=== PATIENT | female | born 1975 | race Hispanic/Latino ===

== ENCOUNTER 2024-06-12 05:14 | Inpatient (IN) | payer SELFPAY ==
[2024-06-12] MEDS ORDERED: ONDANSETRON 4 MG/2 ML VIAL ONE ×2 (06:03→16:39)
[2024-06-12] MEDS ORDERED: NA CHLORIDE 0.9% 1,000 ML ONE (06:04)
[2024-06-12] MEDS ORDERED: MORPHINE 4 MG/ML SYR ONE (06:04)
[2024-06-12 06:13] LABS: Absolute Eosinophils 0.1 K/uL (0-0.5); Absolute Lymphocytes (CBC) 1.7 K/uL (0.7-4.9); Absolute Monocytes 0.7 K/uL (0.1-1.3); Absolute Neutrophil 8.8 K/uL (1.8-8.0); Basophils % 0.4 % (0-1.3); Eosinophils % 0.8 % (0-4.4); Hemoglobin 13.5 g/dL (12.0-15.0); MCH 29.9 pg (27.0-35.0); MCHC 33.6 g/dL (32.0-36.0); MCV 88.9 fL (80-100); MPV 8.8 fL (7.6-11.3); Monocytes % 6.6 % (3.3-12.3); Neutrophils % 77.2 % (41.7-73.7); Platelets 283 thou/uL (152-406); Red Cell Distribution Width 13.6 % (12.1-15.2)
[2024-06-12 06:37] LABS: ALT/SGPT 35 U/L (13-56); AST/SGOT 20 U/L (15-37); Albumin 3.5 g/dL (3.4-5.0); Albumin/Globulin Ratio 0.7 (1.1-1.8); Alkaline Phosphatase 119 U/L (45-117); Anion Gap 8.8 mEq/L (5.0-15.0); BUN Blood Urea Nitrogen 11 mg/dL (7-18); Bicarbonate 26 mEq/L (21-32); Bilirubin Total 0.3 mg/dL (0.2-1.0); Globulin 4.7 g/dL (2.3-3.5); Glomerular Filtration Rate 108 ml/min (=/>90); Glucose Level 146 mg/dL (74-106); Lipase 36 U/L (13-75); Potassium 3.8 mEq/L (3.5-5.1); Protein, Total 8.2 g/dL (6.4-8.2); Sodium Level 135 mEq/L (136-145); Troponin High Sensitivity < 3.0 pg/mL (<58.9)
[2024-06-12 07:07] LABS: Specific Gravity 1.015 (1.005-1.030)
[2024-06-12 07:11] LABS: Specific Gravity 1.015 (1.005-1.030); Sqamous Epithelial <5 /HPF (None Seen); Urine Bacteria None Seen /HPF (<20); Urine Bilirubin NEGATIVE (Negative); Urine Blood Trace (Negative); Urine Clarity Clear (Clear); Urine Color Colorless (Yellow); Urine Culture Reflex Order NOT NEEDED; Urine Glucose NEGATIVE (Negative); Urine Ketones NEGATIVE (Negative); Urine Microscopic Reflex YN ORDER UMIC; Urine Nitrite NEGATIVE (Negative); Urine Protein NEGATIVE (Negative); Urine RBC <5 /HPF (None Seen); Urine Urobilinogen Normal (Normal); Urine WBC None Seen /HPF (<5)
--- NOTE | 2024-06-12 07:56 | RAD REPORT ---
EXAMINATION: CT ABDOMEN AND PELVIS WITH CONTRAST CLINICAL INDICATION: Abdominal pain TECHNIQUE: CT abdomen and pelvis was performed, after the administration of 100 cc Isovue-300.. Sagit mikaela and coronal reconstructions were obtained. One or more of the following dose reduction techniques were used: Automated exposure control, adjustment of the mA and kV according to patient si ze, and iterative reconstruction. Unless otherwise specified, incidental findings do not require dedicated imaging follow-up. [id number]. Oral contrast was not given which limits evaluation of bowel and appendix. COMPARISON: .None FINDINGS: 2.8 cm stone within the gallbladder neck.. Mild lower lobe opacity. Liver, spleen, pancreas, adrenals and kidneys appear unremarkable No evidence of diverticulitis. Normal appendix. Small umbilical hernia. No adnexal mass : IMPRESSION: Cholelithiasis Mild left lower lobe opacity probably pneumonia
--- NOTE | 2024-06-12 08:07 | ER ---
Nurse's Notes [facility] Name: Mone Voss Age: 48 yrs Sex: Female : 1975 Arrival Date: 06/12/2024 Time: 05:14 Bed 20 Private MD: Diagnosis: Acute cholecystitis;Other cholelithiasis with obstruction;Pneumonia due to other specified bacteria;Epigastric abdominal tenderness;Obesity, unspecified Presentation: 06/12 05:44 Chief complaint: Patient states: C/O UPPER AB PAIN THAT RADIATES TO MID BACK WITH br2 NAUSEA. Coronavirus screen: Client denies travel out of the [place] in the last 14 days. Ebola Screen: Patient denies exposure to infectious person. Patient denies travel to an Ebola-affected area in the 21 days before illness onset. Initial Sepsis Screen: Does the patient meet any 2 criteria? No. Patient's initial sepsis screen is negative. Does the patient have a suspected source of infection? No. Patient's initial sepsis screen is negative. Risk Assessment: Do you want to hurt yourself or someone else? Patient reports no desire to harm self or others. Onset of symptoms was June 12, 2024 at 02:30. 05:44 Method Of Arrival: Ambulatory br2 05:44 Acuity: KAYE 3 br2 Triage Assessment: 05:46 General: Appears in no apparent distress. comfortable, Behavior is calm, cooperative. br2 Pain: Complains of pain in right upper quadrant and left upper quadrant Pain radiates to left mid back and right mid back. Cardiovascular: Capillary refill < 3 seconds. Respiratory: Airway is patent Respiratory effort is even, unlabored, Respiratory pattern is regular, symmetrical. GI: Abdomen is obese, Abd is soft Reports upper abdominal pain, nausea. Historical: - Allergies: 05:46 No Known Allergies; br2 - PMHx: 05:46 Diabetes mellitus; Arthritis; br2 - PSHx: 06:56 Ligation of fallopian tube; br2 - Immunization history:: Adult Immunizations up to date. - Infectious Disease History:: Denies. - Social history:: Smoking status: Patient denies any tobacco usage or history of. Patient/guardian denies using alcohol, street drugs. - Family history:: not pertinent. Screenin:48 [facility] ED Fall Risk Assessment (Adult) History of falling in the last 3 months, br2 including since admission No falls in past 3 months (0 pts) Confusion or Disorientation No (0 pts) Intoxicated or Sedated No (0 pts) Impaired Gait No (0 pts) Mobility Assist Device Used No (0 pt) Altered Elimination No (0 pt) Score/Fall Risk Level 0 - 2 = Low Risk Oriented to surroundings. Abuse screen: Denies threats or abuse. Denies injuries from another. Nutritional screening: No deficits noted. Tuberculosis screening: No symptoms or risk factors identified. Assessment: 05:44 Reassessment: SEE TRIAGE ASSESSMENT. br2 06:40 Reassessment: Patient and/or family updated on plan of care and expected duration. Pain br2 level reassessed. Patient is alert, oriented x 3, equal unlabored respirations, skin warm/dry/pink. Patient states feeling better. Patient states symptoms have improved. 07:29 Reassessment: Patient appears in no apparent distress at this time. No changes from kc6 previously documented assessment. Patient and/or family updated on plan of care and expected duration. Pain level reassessed. Patient is alert, oriented x 3, equal unlabored respirations, skin warm/dry/pink. 08:29 Reassessment: Patient appears in no apparent distress at this time. No changes from kc6 previously documented assessment. Patient and/or family updated on plan of care and expected duration. Pain level reassessed. Patient is alert, oriented x 3, equal unlabored respirations, skin warm/dry/pink. Patient states symptoms have not improved. 09:29 Reassessment: Patient appears in no apparent distress at this time. No changes from kc6 previously documented assessment. Patient and/or family updated on plan of care and expected duration. Pain level reassessed. Patient is alert, oriented x 3, equal unlabored respirations, skin warm/dry/pink. Patient states feeling better. Patient states symptoms have improved. Vital Signs: 05:44 BP 131 / 84; Pulse 86; Resp 18; Temp 98.3(TE); Pulse Ox 100% on R/A; Weight 102.97 kg; br2 Height 5 ft. 2 in. ; Pain 10/10; 06:38 BP 129 / 84; Pulse 85; Resp 18; Pulse Ox 97% ; Pain 6/10; br2 09:07 BP 124 / 77; Pulse 90; Resp 18 S; Temp 98.1(O); Pulse Ox 99% on R/A; Pain 10/10; kc6 05:44 Body Mass Index 41.52 (102.97 kg, 157.48 cm) br2 05:44 Pain Scale: Adult br2 06:38 Pain Scale: Adult br2 09:07 Pain Scale: Adult kc6 ED Course: 05:27 Patient arrived in ED. gm2 05:27 Tulio Cruz MD is Attending Physician. rt 05:34 Nikki Briones RN is Primary Nurse. br2 05:41 Inserted saline lock: 20 gauge in right antecubital area, using aseptic technique. af3 Blood collected. Flushed with 10 mL NS. 05:42 Inserted. af3 05:46 Triage completed. br2 05:46 Arm band placed on. br2 05:48 Patient has correct armband on for positive identification. Placed in gown. Bed in low br2 position. Call light in reach. Side rails up X 1. Provided Education on: PLAN OF CARE. 06:10 CBC with Diff Sent. br2 06:10 CMP Sent. br2 06:10 Lipase Sent. br2 06:39 Radiology exam delayed due to test not completed at this time. sm9 07:00 Report received from Nikki Briones RN. kc6 07:00 Pulse ox on. NIBP on. Door closed. Noise minimized. Lights dimmed. Warm blanket given. kc6 Pillow given. Verbal reassurance given. 07:15 Attending Physician role handed off by Tulio Cruz MD aishwarya 07:15 Ed Singletary MD is Attending Physician. aishwarya 07:40 CT Abd/Pelvis - IV Contrast Only In Process Unspecified. EDMS 08:04 US Abdomen Limited In Process Unspecified. EDMS 08:05 Yahir Crenshaw is Hospitalizing Provider. aishwarya 10:44 No provider procedures requiring assistance completed. Patient admitted, IV remains in kc6 place. Administered Medications: 06:09 Drug: Ondansetron IVP 4 mg IVP once; over 2 minutes Route: IVP; Site: right antecubital;br2 08:58 Follow up: Response: No adverse reaction; Nausea is decreased kc6 06:09 Drug: morphine IVP or IV 4 mg IVP once over 4 mins Route: IVP; Infused Over: 4 mins; br2 Site: right antecubital; 08:58 Follow up: Response: No adverse reaction; Pain is unchanged, physician notified; RASS: kc6 Alert and Calm (0) 06:09 Drug: NS 0.9% IV 1000 ml IV at 1 bolus Per protocol; to be given as a bolus over 60 br2 minutes Route: IV; Rate: 1 bolus; Site: right antecubital; 08:59 Follow up: Response: No adverse reaction; IV Status: Completed infusion; IV Intake: kc6 1000ml 09:06 Drug: Piperacillin-Tazobactam IVPB 3.375 grams IVPB once over 60 mins; (mix in NS 100 kc6 mL) Route: IVPB; Infused Over: 60 mins; Site: right antecubital; 10:16 Follow up: Response: No adverse reaction; IV Status: Completed infusion; IV Intake: kc6 100ml 09:06 Drug: NS 0.9% IV 500 ml 500 ml IV at 1 bolus once; to be given as a bolus over 30 kc6 minutes Volume: 500 ml; Route: IV; Rate: 1 bolus; Site: right antecubital; 10:16 Follow up: Response: No adverse reaction; IV Status: Completed infusion; IV Intake: kc6 500ml 09:06 Drug: HYDROmorphone IVP 1 mg IVP once Route: IVP; Site: right antecubital; kc6 10:16 Follow up: Response: No adverse reaction; Pain is decreased; RASS: Alert and Calm (0) kc6 Medication: 10:44 VIS not applicable for this client. kc6 Intake: 08:59 IV: 1000ml; Total: 1000ml. kc6 10:16 IV: 100ml; Total: 1100ml. kc6 10:16 IV: 500ml; Total: 1600ml. kc6 Outcome: 08:07 Decision to Hospitalize by Provider. aishwarya 10:44 Admitted to Med/surg accompanied by tech, family with patient, via wheelchair, room kc6 223, with chart, 10:44 Condition: good 10:44 Instructed on the need for admit, 10:44 Patient left the ED. kc6 Signatures: Dispatcher [employer] EDMS Ed Singletary MD MD cha Campbell, Kaitlyn, RN RN kc6 Tulio Cruz MD MD rt Mary Ann Barfield 2 Sarah Ceja 9 Nikki Briones RN RN br2 Esthela Xiao af3
--- NOTE | 2024-06-12 08:07 | EDPHYS ---
Physician Documentation [facility] Name: Mone Voss Age: 48 yrs Sex: Female : 1975 Arrival Date: 06/12/2024 Time: 05:14 Bed 20 Private MD: ED Physician Ed Singletary HPI: 06/12 06:24 This 48 yrs old Female presents to ER via Ambulatory with complaints of rt Abdominal Pain, Nausea. 06:24 Patient presents to the ED with epigastric pain radiating to the back starting at about rt 11 PM. States that is been constant since then. Reports nausea without vomiting. Denies other acute complaints at this time, symptoms are moderate in severity, no other aggravating alleviating factors.. Historical: - Allergies: 05:46 No Known Allergies; br2 - PMHx: 05:46 Diabetes mellitus; Arthritis; br2 - PSHx: 06:56 Ligation of fallopian tube; br2 - Immunization history:: Adult Immunizations up to date. - Infectious Disease History:: Denies. - Social history:: Smoking status: Patient denies any tobacco usage or history of. Patient/guardian denies using alcohol, street drugs. - Family history:: not pertinent. ROS: 06:24 Constitutional: Negative for fever, chills, and weight loss, Cardiovascular: Negative rt for chest pain, palpitations, and edema, Respiratory: Negative for shortness of breath, cough, wheezing, and pleuritic chest pain, MS/Extremity: Negative for injury and deformity, Skin: Negative for injury, rash, and discoloration, Neuro: Negative for headache, weakness, numbness, tingling, and seizure, 06:24 Abdomen/GI: Positive for abdominal pain, nausea, Exam: 06:24 ECG was reviewed by the Attending Physician. rt 06:24 Abdomen/GI: Tenderness to the epigastrium with mild guarding, no rebound, no distention, Fields sign negative, no focal right upper quadrant, right lower quadrant tenderness, Vital Signs: 05:44 BP 131 / 84; Pulse 86; Resp 18; Temp 98.3(TE); Pulse Ox 100% on R/A; Weight 102.97 kg; br2 Height 5 ft. 2 in. ; Pain 10/10; 06:38 BP 129 / 84; Pulse 85; Resp 18; Pulse Ox 97% ; Pain 6/10; br2 09:07 BP 124 / 77; Pulse 90; Resp 18 S; Temp 98.1(O); Pulse Ox 99% on R/A; Pain 10/10; kc6 05:44 Body Mass Index 41.52 (102.97 kg, 157.48 cm) br2 05:44 Pain Scale: Adult br2 06:38 Pain Scale: Adult br2 09:07 Pain Scale: Adult kc6 MDM: 05:50 Medical Screening Exam initiated rt 07:50 Differential diagnosis: Nonspecific abd pain, gastritis, cholecystitis, pancreatitis, aishwarya appendicitis, diverticulitis, viral gastroenteritis, gastroenteritis. Data reviewed: vital signs, nurses notes, lab test result(s), EKG, radiologic studies. Consideration of Admission/Observation Escalation of care including admission/observation considered. I considered the following discharge prescriptions or medication management in the emergency department Medications were administered in the Emergency Department. See MAR. Independent interpretation of the following test(s) in the Emergency Department EKG: See my EKG interpretation above. Test considered but Not performed: MRI: no mrcp. Historians other than the Patient: pt well informed. Care significantly affected by the following chronic conditions: Diabetes, Obesity. 06/12 05:57 Order name: CBC with Diff; Complete Time: 07:18 rt 06/12 05:57 Order name: CMP; Complete Time: 07:18 rt 06/12 05:57 Order name: Lipase; Complete Time: 07:18 rt 06/12 05:57 Order name: Test, Urine; Complete Time: 07:18 rt 06/12 05:57 Order name: Urinalysis w/ reflexes; Complete Time: 07:18 rt 06/12 05:57 Order name: Troponin High Sensitivity; Complete Time: 07:18 rt 06/12 08:00 Order name: Blood Culture Adult (2) aishwarya 06/12 08:00 Order name: Lactate w/ 2H reflex if indic. aishwarya 06/12 09:41 Order name: Urinalysis w/ reflexes EDMS 06/12 09:41 Order name: CBC with Automated Diff EDMS 06/12 09:41 Order name: CBC with Automated Diff EDMS 06/12 09:41 Order name: Comprehensive Metabolic Panel EDMS 06/12 09:41 Order name: Comprehensive Metabolic Panel EDMS 06/12 09:41 Order name: Magnesium EDMS 06/12 09:41 Order name: Magnesium EDMS 06/12 09:41 Order name: Phosphorus EDMS 06/12 09:41 Order name: Phosphorus EDMS 06/12 05:57 Order name: CT Abd/Pelvis - IV Contrast Only; Complete Time: 07:59 rt 06/12 07:18 Order name: US Abdomen Limited; Complete Time: 08:57 aishwarya 06/12 09:41 Order name: CONS Physician Consult EDMS 06/12 05:57 Order name: IV Saline Lock; Complete Time: 05:58 rt 06/12 05:57 Order name: Labs collected and sent; Complete Time: 06:10 rt 06/12 05:57 Order name: EKG - Nurse/Tech; Complete Time: 06:20 rt EC:24 Rate is 84 beats/min. Rhythm is regular, 1st Degree Block with No ectopy. QRS [place] is rt Normal. AL interval is normal. QRS interval is normal. QT interval is normal. No Q waves. T waves are Normal. No ST changes noted. Interpreted by me. Administered Medications: 06:09 Drug: Ondansetron IVP 4 mg IVP once; over 2 minutes Route: IVP; Site: right antecubital;br2 08:58 Follow up: Response: No adverse reaction; Nausea is decreased kc6 06:09 Drug: morphine IVP or IV 4 mg IVP once over 4 mins Route: IVP; Infused Over: 4 mins; br2 Site: right antecubital; 08:58 Follow up: Response: No adverse reaction; Pain is unchanged, physician notified; RASS: kc6 Alert and Calm (0) 06:09 Drug: NS 0.9% IV 1000 ml IV at 1 bolus Per protocol; to be given as a bolus over 60 br2 minutes Route: IV; Rate: 1 bolus; Site: right antecubital; 08:59 Follow up: Response: No adverse reaction; IV Status: Completed infusion; IV Intake: kc6 1000ml 09:06 Drug: Piperacillin-Tazobactam IVPB 3.375 grams IVPB once over 60 mins; (mix in NS 100 kc6 mL) Route: IVPB; Infused Over: 60 mins; Site: right antecubital; 10:16 Follow up: Response: No adverse reaction; IV Status: Completed infusion; IV Intake: kc6 100ml 09:06 Drug: NS 0.9% IV 500 ml 500 ml IV at 1 bolus once; to be given as a bolus over 30 kc6 minutes Volume: 500 ml; Route: IV; Rate: 1 bolus; Site: right antecubital; 10:16 Follow up: Response: No adverse reaction; IV Status: Completed infusion; IV Intake: kc6 500ml 09:06 Drug: HYDROmorphone IVP 1 mg IVP once Route: IVP; Site: right antecubital; kc6 10:16 Follow up: Response: No adverse reaction; Pain is decreased; RASS: Alert and Calm (0) kc6 Disposition Summary: 06/12/24 08:07 Hospitalization Ordered Notes: Hospitalization Status: Inpatient Admission aishwarya Provider: Yahir Crenshaw cha Location: Telemetry/MedSurg (Inpatient) aishwarya Condition: Stable aishwarya Problem: new aishwarya Symptoms: have improved aishwarya Bed/Room Type: Standard [facility] Room Assignment: 223(06/12/24 09:57) bc6 Diagnosis - Acute cholecystitis aishwarya - Other cholelithiasis with obstruction aishwarya - Pneumonia due to other specified bacteria aishwarya - Epigastric abdominal tenderness aishwarya - Obesity, unspecified aishwarya Forms: - Medication Reconciliation Form aishwarya - SBAR form aishwarya - Leadership Thank You Letter aishwarya Signatures: Dispatcher [employer] EDEd Gibson MD MD cha Campbell, Kaitlyn RN RN kc6 Tulio Cruz MD MD rt [place], Breana bc6 Nikki Briones, RN RN br2 Corrections: (The following items were deleted from the chart) 05:57 05:57 Abdomen Pelvis W Con+CT.RAD.BRZ ordered. EDMS EDMS 07:19 07:18 Abdomen Limited+US.RAD.BRZ ordered. EDMS EDMS 08:00 08:00 BLOOD CULTURE*+BA.LAB.BRZ ordered. EDMS EDMS 08:00 08:00 LACTATE+C.LAB.BRZ ordered. EDMS EDMS 09:57 08:07 aishwarya bc6
--- NOTE | 2024-06-12 08:24 | RAD REPORT ---
EXAM: Right upper quadrant ultrasound. CLINICAL HISTORY: Abdominal pain COMPARISON: CT June 12, 2024 FINDINGS: 2.5 cm stone within the gallbladder neck. Gallbladder wall upper limits normal thickness. Biliary tree normal caliber IMPRESSION: Stone within the neck the gallbladder. No evidence of cholecystitis
[2024-06-12] MEDS ORDERED: NA CHLORIDE 0.9% 500 ML ONE (08:41)
[2024-06-12] MEDS ORDERED: NA CHLORIDE 0.9% 100 ML ONE (08:41)
[2024-06-12] MEDS ORDERED: PIPERACIL/TAZO 3.375 GM VIAL IV ONE (08:41)
[2024-06-12] MEDS ORDERED: HYDROMORPHONE HCL 1 MG/ML INJ ONE (08:58)
[2024-06-12] MEDS: NA CHLORIDE 0.9% 1,000 ML IV SCH (10:00)
[2024-06-12] MEDS ORDERED: GLUCAGON 1 MG/VIAL IM PRN (11:00)
[2024-06-12] MEDS ORDERED: D50W 25 GM/50 ML SYRINGE IV PRN (11:00)
[2024-06-12 11:18] VITALS: BMI 41.5
[2024-06-12] MEDS: INSULIN REGULAR (HUMAN) 100 UNIT/ML SQ SCH (11:30)
--- NOTE | 2024-06-12 14:18 | P.HP ---
Date of Service: 06/12/24 PC: This 48-year-old female presented emergency room with severe right upper quadrant abdominal pain for diagnosis and treatment. HPC: This patient has been experiencing right upper quadrant abdominal pain for the last couple of months. Has increased both in intensity and in duration. Last night became so severe she came to the emergency room. PSHx: Negative PMHx: 5 para 5, diabetic Social Hx: No known allergies Sys R: No cough, wheeze, shortness of breath. No chest pain or palpitations. No urinary complaints O/E: Awake alert vital signs are stable, not in distress at the moment HEENT: Not jaundiced Chest: Air entry equal bilaterally Abd: Mild abdominal tenderness Rosebud: Intact Data: Has documented gallstones, wound down by the medic Impression: Cholecystitis with cholelithiasis, biliary colic Plan: I will taken the operating room for laparoscopic possible open cholecystectomy with a cholangiogram. The risks of this procedure have been discussed. The possibility of bleeding, infection, injury to the bile ducts blood vessels and intestines were outlined. She has her daughter here as coil winder repair. She understands and wants us to proceed.
[2024-06-12] MEDS: NA CHLORIDE 0.9% 1,000 ML ONE ×2 (14:20→17:56)
[2024-06-12] MEDS ORDERED: propofoL 200 MG/20 ML VIAL IV ONE (15:13)
[2024-06-12] MEDS ORDERED: MIDAZOLAM HCL 2 MG/2 ML INJ ONE (15:13)
[2024-06-12] MEDS ORDERED: ROCURONIUM 50 MG/5 ML VIAL IV ONE ×2 (15:13→16:57)
[2024-06-12] MEDS ORDERED: FENTANYL CITR 100 MCG/2 ML ONE ×2 (15:13→16:58)
[2024-06-12] MEDS ORDERED: LIDOCAINE 2% MPF 5 ML VIAL ONE (15:13)
--- NOTE | 2024-06-12 15:19 | P.HP ---
Certification for Inpatient Patient admitted to: Inpatient With expected LOS: >2 Midnights Practitioner: I am a practitioner with admitting privileges, knowledge of patient current condition, hospital course, and medical plan of care. Services: Services provided to patient in accordance with Admission requirements found in Title 42 Section 412.3 of the Code of Federal Regulations Patient History Date of Service: 06/12/24 Reason for admission: Acute cholecystitis History of Present Illness: Mone Voss is a 48-year-old female with past medical history of diabetesIDDM and hypothyroidism who presents to the ED with chief complaint of epigastric abdominal and back pain associated with nausea that started around 11PM. She denies episodes like this in the past. Laboratory evaluation significant for WBC 11.4, sodium 135, serum glucose 146, UA negative for infectious process. CT abdomen pelvis reports "Cholelithiasis, 2.8 cm stone within the gallbladder neck mild left lower lobe opacity probably pneumonia" Ultrasound abdomen reports "Stone within the neck the gallbladder. No evidence of cholecystitis" Mone will be admitted to hospitalist service for further treatment of acute cholecystitis, Dr. Keller consulted Allergies No Known Allergies Allergy (Unverified 06/12/24 09:58) Home Medications: Levothyroxine [Synthroid*] 06/12/24 Metformin HCl 500 mg PO BID 06/12/24 - Past Medical/Surgical History Has patient received pneumonia vaccine in the past: No Diabetic: Yes -: DIABETES -: HYPOTHYROIDISM -: TUBAL LIGATION - Social History Smoking Status: Never smoker Alcohol use: No CD- Drugs: No Caffeine use: No Place of Residence: Home Review of Systems Other: per HPI Physical Examination - Vital Signs Temperature: 97.7 F Blood Pressure: 124/65 Pulse: 80 Respirations: 20 Pulse Ox (%): 95 - Physical Exam General: Alert, In no apparent distress, Oriented x3 HEENT: Atraumatic, Normocephalic, PERRLA Neck: Supple, 2+ carotid pulse no bruit Respiratory: Clear to auscultation bilaterally, Normal air movement Cardiovascular: Normal pulses, Regular rate/rhythm, Normal S1 S2 Capillary refill: <2 Seconds Gastrointestinal: Normal bowel sounds, Soft and benign, Tenderness Musculoskeletal: No clubbing Integumentary: No rashes Neurological: Normal speech, Normal tone - Studies Laboratory Data (last 24 hrs) 06/12/24 06/12/24 06:00 06:00 WBC 11.40 H Hgb 13.5 Hct 40.0 Plt Count 283 Sodium 135 L Potassium 3.8 BUN 11 Creatinine 0.67 Glucose 146 H Total Bilirubin 0.3 AST 20 ALT 35 Alkaline Phosphatase 119 H Lipase 36 Assessment and Plan - Plan Assessment and plan Acute cholecystitis -IV Zosyn every 8 -IV fluids -Pain control -Antiemetics -N.p.o. for surgery today -Dr. Keller consulted -Follow LFTs in the a.m. Diabetes mellitus-NIDDM -Accu-Chek with sliding scale insulin History of arthritis History of hypothyroidism -Continue home medication when available DVT PPx SCDs Full code LOS 2 days Discharge Plan: Home Plan to discharge in: 48 Hours - Advance Directives Does patient have a Living Will: No Does patient have a Durable POA for Healthcare: No
[2024-06-12] MEDS: SUGAMMADEX SODIUM 200 MG/2 ML VIAL IV ONE (15:25)
[2024-06-12] MEDS: SUCCINYLCHOLINE 20 MG/ML (10 ML) IV ONE (15:26)
[2024-06-12] MEDS ORDERED: FLU (Fluarix Triv) TS24-25(6MOS UP)/PF 45 MCG/0.5 ML Syringe IM ONE (15:45)
[2024-06-12] MEDS ORDERED: dexAMETHasone 4 MG/ML VIAL ONE (16:39)
--- NOTE | 2024-06-12 17:30 | P.OP ---
Preoperative diagnosis: Acute on chronic cholecystitis with cholelithiasis Postoperative diagnosis: Same with hydrops of the gallbladder Primary procedure: Laparoscopic cholecystectomy Secondary procedure: Cholangiogram Anesthesia: General Estimated blood loss: Less than 10 cc Specimen: 1 gallbladder and content Operative Technique: Patient brought the operating room and placed supine on the table. After the induction of adequate general endotracheal anesthesia, the area of the abdomen was prepped with a DuraPrep solution, she was draped in the usual aseptic manner. A subumbilical incision was made. This is brought down through the skin and subcutaneous tissue. The Visiport was used to enter the peritoneal cavity and created pneumoperitoneum to approximately 12 mmHg. Under direct vision a 5 mm trocars placed in the upper midline, and 2 other fives on the right lateral side of the abdomen. We were now able to visualize the gallbladder. It was noted to be markedly distended. We were unable to place a grasper on it due to the distention. An aspirating needle was now inserted into the body of the gallbladder. We encountered thick white mucousy fluid from the gallbladder. He is having been deflated we can now easily get a grasper onto the fundus and another down by Martinez's pouch. Applying lateral traction we were able to dissect out and expose the cystic duct and artery. A clip was placed into the gallbladder and the cystic duct. An opening was made into the cystic duct. The cholangiocatheter was easily passed into the cystic duct and down into the common bile duct. The balloon was inflated. We obtained a cholangiogram that demonstrated good flow of contrast into the duodenum, no filling defects were noted. The catheter was now pulled back and we injected again with the occluding balloon deflating. We could see good flow of contrast into the duodenum as well as filling of the upper radicles, and also demonstrating where the cystic duct was. The catheter was now withdrawn. Clips were placed on the distal portion of the cystic duct. The cystic artery was clipped and divided as well. The gallbladder was now dissected free from the liver bed, placed into an Endo Catch, and brought out through the umbilical trocar site. Attention was turned towards the umbilicus. We approximated the fascia using the Endo Close and absorbable sutures. The abdomen was now inspected to her adequate hemostasis. The irrigating fluid was aspirated from the peritoneal cavity. The trocars were now removed, the pneumoperitoneum collapsed, and the sutures at the umbilicus were tied. At the end of procedure she was stable condition was sent to the recovery room. Needle sponge instrument count were correct. [place] have been applied to the s kin. No drains were placed. Complications: None Transferred to: Recovery Room Condition: Good
[2024-06-12 18:12] VITALS: O2SAT 100
[2024-06-12] MEDS: PIPER TAZO 3.375 GM in NA CHLORIDE 0.9% 100 ML IV SCH (18:14)
[2024-06-12] MEDS: MORPHINE 4 MG/ML SYR IV PRN (18:15)
--- NOTE | 2024-06-12 20:48 | RAD REPORT ---
Exam: Cholangiogram operating x-ray lumbar Clinical history cholecystectomy FINDINGS: 4 fluoroscopic spot images obtained. Fluoroscopy time 8 minutes. Cholangiogram performed. Surgeon Dr. Keller. Please refer to his notes for findings
[2024-06-13] MEDS: HYDROCODONE/APAP 7.5/325 MG TAB PO PRN (01:17)
[2024-06-13] MEDS: ONDANSETRON 4 MG/2 ML VIAL IV PRN (01:17)
[2024-06-13] MEDS: LEVOTHYROXINE SOD 0.075 MG TAB PO SCH (06:21)
[2024-06-13 07:25] LABS: Absolute Lymphocytes (CBC) 1.8 K/uL (0.7-4.9); Absolute Monocytes 0.7 K/uL (0.1-1.3); Absolute Neutrophil 6.4 K/uL (1.8-8.0); Basophils % 0.3 % (0-1.3); Hematocrit 36.4 % (36.0-45.0); Hemoglobin 12.1 g/dL (12.0-15.0); Lymphocytes % 19.9 % (15.3-44.8); MCH 29.8 pg (27.0-35.0); MCHC 33.3 g/dL (32.0-36.0); MCV 89.7 fL (80-100); MPV 8.3 fL (7.6-11.3); Monocytes % 7.4 % (3.3-12.3); Neutrophils % 72.4 % (41.7-73.7); Nucleated Red Blood Cells % 0.1 % (0-0); Platelets 283 thou/uL (152-406); RBC Red Blood Cell Count 4.06 M/uL (3.86-4.86); Red Cell Distribution Width 13.3 % (12.1-15.2)
[2024-06-13 07:48] LABS: Albumin 2.9 g/dL (3.4-5.0); Albumin/Globulin Ratio 0.7 (1.1-1.8); Anion Gap 9.7 mEq/L (5.0-15.0); Bilirubin Total 0.6 mg/dL (0.2-1.0); Globulin 3.9 g/dL (2.3-3.5); Magnesium 2.4 mg/dL (1.6-2.4); Phosphorus 3.1 mg/dL (2.5-4.9); Potassium 3.7 mEq/L (3.5-5.1); Protein, Total 6.8 g/dL (6.4-8.2)
[2024-06-13] MEDS ORDERED: D10W 125 ML IV PRN (08:14)
[2024-06-13] MEDS: POTASSIUM CL SA 10 MEQ TAB PO ONE (08:53)
--- NOTE | 2024-06-13 12:08 | P.DS ---
Admission Date: 06/12/24 Discharge Date: 06/13/24 Disposition: ROUTINE DISCHARGE Discharge Condition: GOOD Reason for Admission: Acute cholecystitis Brief History of Present Illness: Diagnosis Acute cholecystitis Diabetes mellitus-NIDDM History of arthritis History of hypothyroidism HPI 06/12/2024 Mone Voss is a 48-year-old female with past medical history of diabetesIDDM and hypothyroidism who presents to the ED with chief complaint of epigastric abdominal and back pain associated with nausea that started around 11PM. She denies episodes like this in the past. Laboratory evaluation significant for WBC 11.4, sodium 135, serum glucose 146, UA negative for infectious process. CT abdomen pelvis reports "Cholelithiasis, 2.8 cm stone within the gallbladder neck mild left lower lobe opacity probably pneumonia" Ultrasound abdomen reports "Stone within the neck the gallbladder. No evidence of cholecystitis" Mone will be admitted to hospitalist service for further treatment of acute cholecystitis, Dr. Keller consulted Hospital Course: Patient was admitted and treated for the following diagnoses Acute cholecystitis -Tolerated Zosyn, antiemetics, Antiemetics, and IVF -Pain controlled -Dr. Keller-surgical intervention 06/12/24, cleared for discharge today 06/13/24 -Follow LFTs in the a.m. Diabetes mellitus-NIDDM -Accu-Chek with sliding scale insulin History of arthritis History of hypothyroidism -Continue home medication when available On 06/13/2024, Mone was seen on morning rounds and deemed hemodynamically stable. She has ambulated around the [facility] multiple times this morning. Dr. Narvaez has evaluated and cleared her for discharge. She has ambulated around the [facility] several times this morning. Augmentin and tramadol were prescribed. Follow-up with Dr. Narvaez in 1 week and PCP in 3 to 5 days. General: AAOx3, NAD Respiratory: symmetrical chest expansion, no accessory muscles used, on RA Cardiac: RRR, no murmurs noted, S1 S2 present Extremities: No edema present, peripheral pulses 2+ Abdominal: soft, NT/ND, surgical incisions approximated CDI Skin: warm pink and dry Neurological: clear speech, appropriate Vital Signs/Physical Exam: Temp Pulse Resp BP Pulse Ox 97.8 F 78 16 96/61 93 06/13/24 08:00 06/13/24 08:00 06/13/24 08:00 06/13/24 08:00 06/13/24 08:00 Laboratory Data at Discharge: WBC 8.90 thou/uL (4.3-10.9) 06/13/24 06:56 Hgb 12.1 g/dL (12.0-15.0) D 06/13/24 06:56 Hct 36.4 % (36.0-45.0) 06/13/24 06:56 Plt Count 283 thou/uL (152-406) 06/13/24 06:56 Sodium 138 mEq/L (136-145) 06/13/24 06:56 Potassium 3.7 mEq/L (3.5-5.1) 06/13/24 06:56 BUN 6 mg/dL (7-18) L 06/13/24 06:56 Creatinine 0.69 mg/dL (0.55-1.02) 06/13/24 06:56 Glucose 124 mg/dL (74-106) H 06/13/24 06:56 Phosphorus 3.1 mg/dL (2.5-4.9) 06/13/24 06:56 Magnesium 2.4 mg/dL (1.6-2.4) 06/13/24 06:56 Total Bilirubin 0.6 mg/dL (0.2-1.0) 06/13/24 06:56 AST 40 U/L (15-37) H 06/13/24 06:56 ALT 44 U/L (13-56) 06/13/24 06:56 Alkaline Phosphatase 89 U/L (45-117) D 06/13/24 06:56 Lipase 36 U/L (13-75) 06/12/24 06:00 Home Medications: Levothyroxine [Synthroid*] 06/12/24 Metformin HCl 500 mg PO BID 06/12/24 Amox/Clavulanate [Augmentin 875-125 Tab] 875 mg PO BID 5 Days #10 tab 06/13/24 traMADol HCL [Ultram*] 50 mg PO Q6H PRN 5 Days #15 tab 06/13/24 New Medications: Amox/Clavulanate [Augmentin 875-125 Tab] 875 mg PO BID 5 Days #10 tab traMADol HCL [Ultram*] 50 mg PO Q6H PRN 5 Days #15 tab PRN Reason: Pain Physician Discharge Instructions: PROBLEM: Status post Cholesystectomy GOAL: Clear understanding of disease process INSTRUCTIONS: Diet: Regular Activity: No lifting more than 10 lbs Follow up with PCP in 3-5 days Follow up with Dr Keller in 1 week IMMUNIZATION Influenza Vaccine Indicated: Yes Influenza Vaccine Given: Date Given: Pneumonia Vaccine Indicated: No Pneumonia Vaccine Given: Date Given: 1. Please call and schedule a follow-up appointment with your PCP in 3-5 days - Please follow-up with your PCP for medication refills/adjustments 2. Please call and schedule a follow-up appointment with Dr. Keller in 1 week 3. Continue regular diet, 4. activity restrictions do not lift greater than 10 pounds for the 5 days 5. Return to the ED if symptoms worsen New medications Augmentin 875 mg twice daily x 5 days Tramadol 50 mg every 6 hours for pain x 15 doses Diet: Regular Activity: No lifting more than 10 lbs Followup: PIETRO FLORES [Primary Care Provider] - Jorge Keller MD [ACTIVE - CAN ADMIT] -
[2024-06-13 12:47] VITALS: BP 104/57; TEMP 97.4
--- NOTE | 2024-06-14 11:06 | EKG ---
Test Date: 2024-06-12 Test Time: 06:18:15 [employer]: SERGEY MEASUREMENT RESULTS: Intervals: Rate: 84 MS: 216 QRSD: 84 QT: 406 QTc: 479 [place]: P: 50 MS: 216 QRS: 14 T: 35 INTERPRETIVE STATEMENTS: Sinus rhythm with 1st degree AV block Low voltage QRS Borderline ECG No previous ECG available for comparison Electronically Signed On 06-14-24 10:59:58 CDT by Wilmer Johnson
== END 2024-06-13 14:11 | disposition home or self-care (01) | DRG 417 ==
LOC: ER 05:14 → 2ND 09:41
PROVIDERS: ADMIT Internal Medicine; ATTEND Internal Medicine
PROC: BF522Z0 Other Imaging of Gallbladder using Fluorescing Agent, Intraoperative (ICD-10-PCS; 2024-06-12)
PROC: 0FT44ZZ Resection of Gallbladder, Percutaneous Endoscopic Approach (ICD-10-PCS; principal; 2024-06-12 11:45)
DX: K80.12 Calculus of gallbladder with acute and chronic cholecystitis without obstruction (principal); J18.9 Pneumonia, unspecified organism; Z68.41 Body mass index [BMI] 40.0-44.9, adult; K82.1 Hydrops of gallbladder; E66.9 Obesity, unspecified; E03.9 Hypothyroidism, unspecified; E11.9 Type 2 diabetes mellitus without complications; M19.90 Unspecified osteoarthritis, unspecified site; Z79.84 Long term (current) use of oral hypoglycemic drugs; Z79.890 Hormone replacement therapy
CPT/HCPCS: 36415; 74177; 74300; 76705; 80053; 81001; 81025; 82947; 83605; 83690; 83735; 84100; 84484; 85025; 87040; 88304; 93005; 94010; 96361; 96365; 96375; 99285; J1100; J1171; J2003; J2250; J2405; J2543; J2704; J3010; J7030; J7040; Q9967